=== PATIENT | female | born 1960 | race African-American/Black ===

== ENCOUNTER 2020-12-19 09:58 | Outpatient (CLI) | payer MEDICARE | END 2020-12-19 09:59 | disposition home or self-care (01) | LOC: CSHWCC 09:58 | PROVIDERS: ATTEND Nurse Practitioner Family | DX: I89.0 Lymphedema, not elsewhere classified (principal); R60.0 Localized edema; L03.90 Cellulitis, unspecified; G47.33 Obstructive sleep apnea (adult) (pediatric); J18.9 Pneumonia, unspecified organism; I10 Essential (primary) hypertension; M62.50 Muscle wasting and atrophy, not elsewhere classified, unspecified site; M79.661 Pain in right lower leg | CPT/HCPCS: 97139; G0463; 99203; 99213 ==